=== PATIENT | male | born 1975 | race African-American/Black ===

== ENCOUNTER 2018-07-28 11:19 | Emergency (ER) | payer SELFPAY ==
[~2018-07-28] VITALS: Ht 182.9 cm; Wt 77.1 kg
[2018-07-28 11:30] VITALS: BP 136/92
== END 2018-07-28 15:08 | disposition left against medical advice (07) ==
LOC: ER 11:19
DX: M54.12 Radiculopathy, cervical region (principal); F17.210 Nicotine dependence, cigarettes, uncomplicated; F12.10 Cannabis abuse, uncomplicated; Z88.0 Allergy status to penicillin; Z53.29 Procedure and treatment not carried out because of patient's decision for other reasons
CPT/HCPCS: 70450; 71046; 93005